=== PATIENT | female | born 1970 | race Caucasian/White ===

== ENCOUNTER 2016-12-20 23:00 | Emergency (ER) | payer OTHER ==
[~2016-12-20] VITALS: Ht 162.6 cm; Wt 81.7 kg
[~2016-12-20 23:00] MED LIST: IBUPROFEN 600600 M1 PO; NOHOMEMEDICATIONS; NORCO 5-325 TA1 EACH PO; PENICILLIN VK500 M1 PO; TRAMADOL 50 MG50 MG PO; ULTRAM 50MG TAB50 MG PO; ZOFRAN4 MG PO
[2016-12-21] MEDS ORDERED: PREDNISONE 20 M20 MG PO (00:51)
[2016-12-21 01:28] VITALS: BP 148/89
== END 2016-12-21 01:28 | disposition home or self-care (01) ==
LOC: ER 23:00
DX: J40 Bronchitis, not specified as acute or chronic (principal); J02.9 Acute pharyngitis, unspecified; F17.210 Nicotine dependence, cigarettes, uncomplicated

== ENCOUNTER 2017-02-22 01:45 | Inpatient (IN) | payer OTHER ==
[~2017-02-22] VITALS: Ht 162.6 cm; Wt 81.6 kg
--- NOTE | ~2017-02-22 | EKG ---
[address] [address] ELECTROCARDIOGRAM REPORT Name: JUDITH TRENTPablo Ritter Room #: 420-P [facility] IN .R.#: [id number] Admission: 02/22/17 Attend Phys: Calvin Carmona MD Discharge: Date of : 68 Report #: [id number] THIS REPORT FOR: //name// [facility] ED Test Date: 2017-02-22 Test Time: 02:22:59 Pat Name: WESLEY TRENT Department: Room: [facility] Gender: F Financial Counselor: AVE : 1970 Requested By: Wendi Link Order Number: [id number] MD: Hardeep Richard Measurements Intervals [place] Rate: 91 P: 29 [place]: 146 QRS: 12 QRSD: 85 T: 4 QT: 350 QTc: 431 Interpretive Statements Incomplete analysis due to missing data in precordial lead(s) Sinus rhythm Missing lead(s): V6 No previous ECG available for comparison Electronically Signed On 02-22-2017 13:34:10 CDT by Hardeep Richard [email or web address] <ELECTRONICALLY SIGNED> By: Hardeep Richard MD 02/22/17 1334 1 1 Hardeep Richard MD /ABIGAIL
[~2017-02-22 01:45] MED LIST changes: +PREDNISONE 20 M20 MG PO
[2017-02-22] MEDS ORDERED: WELLBUTRIN 100100 MG PO (01:47)
[2017-02-22 01:48] VITALS: BP 161/75
[2017-02-22] MEDS ORDERED: XANAX 0.5 MG0.5 MG PO (01:48)
[2017-02-22 02:30] LABS: URINE BILIRUBIN NEGATIVE (Negative); URINE BLOOD NEGATIVE (Negative); URINE COLOR YELLOW; URINE GLUCOSE-RANDOM* NEGATIVE (Negative); URINE KETONES NEGATIVE (Negative); URINE LEUKOCYTES-REFLEX NEGATIVE (Negative); URINE PROTEIN (DIPSTICK) NEGATIVE (Negative); URINE SPECIFIC GRAVITY 1.025 (1.003-1.035); URINE UROBILINOGEN 0.2 E.U./dl (0.2-1.0)
[2017-02-22 02:33] LABS: ABSOLUTE NEUTROPHILS 4.2 thou/uL (1.4-8.2); BASOPHILS 0.2 % (0.0-2.0); EOSINOPHILS 4.2 % (0.0-3.0); HEMATOCRIT 36.7 % (37.0-47.0); HEMOGLOBIN 12.4 gm/dL (12.0-15.0); LYMPHOCYTES 44.1 % (24.0-44.0); MCH 31.7 pg (26.0-34.0); MCHC 33.9 g/dL (28.0-37.0); MCV 93.7 fL (80.0-100.0); MONOCYTES 9.7 % (1.0-8.0); PLATELET COUNT 297 thou/uL (150-400); POLYS 41.8 % (36.0-66.0); RBC 3.92 mil/uL (4.20-5.00); RDW 15.3 % (10.5-14.5)
[2017-02-22 02:34] LABS: AMP/METHAMP Negative (Negative); BARBITURATES Negative (Negative); BENZODIAZEPINES Negative (Negative); COCAINE Negative (Negative); METHADONE Negative (Negative); PCP Negative (Negative); THC Negative (Negative)
[2017-02-22 02:41] LABS: ANION GAP 12 mmol/L (7-16); BUN 9 mg/dL (7-18); CALCIUM 9.4 mg/dL (8.5-10.1); CHLORIDE 105 mmol/L (98-107); CO2 23 mmol/L (21-32); CREATININE 0.9 mg/dL (0.6-1.3); GLUCOSE 97 mg/dL (70-99); MANUAL DIFF NO; POTASSIUM 4.3 mmol/L (3.5-5.1); SODIUM 140 mmol/L (136-145)
[2017-02-22 02:48] LABS: OPIATES POSITIVE (Negative)
[2017-02-22 02:48] LABS: ALBUMIN 3.6 g/dL (3.4-5.0); ALKALINE PHOSPHATASE 112 U/L (46-116); SGOT 14 U/L (15-37); SGPT 18 U/L (30-65); TOTAL BILIRUBIN 0.1 mg/dL (<0.1-1.0); TOTAL PROTEIN 7.1 g/dL (6.4-8.2); TROPONIN-I < 0.04 ng/mL (<0.04-0.07)
[2017-02-22 03:29] VITALS: BP 133/77
[2017-02-22 03:40] VITALS: BP 130/77
[2017-02-22 07:49] VITALS: BP 108/66
[2017-02-22] MEDS ORDERED: BENZTROPINE MES1 MG PO (11:43)
[2017-02-22 12:47] VITALS: BP 108/66
== END 2017-02-22 13:50 | disposition home or self-care (01) | DRG 57 ==
LOC: ER 01:45 → EROBS 03:17 → 4E 03:17
PROVIDERS: Emergency Medicine
DX: G25.79 Other drug induced movement disorders (principal); F19.239 Other psychoactive substance dependence with withdrawal, unspecified; I10 Essential (primary) hypertension; M19.90 Unspecified osteoarthritis, unspecified site; G25.71 Drug induced akathisia; F17.210 Nicotine dependence, cigarettes, uncomplicated; F32.9 Major depressive disorder, single episode, unspecified; M41.9 Scoliosis, unspecified
CPT/HCPCS: 10183

== ENCOUNTER 2017-11-21 15:53 | Emergency (ER) | payer OTHER ==
[~2017-11-21] VITALS: Ht 162.6 cm; Wt 77.1 kg
[~2017-11-21 15:53] MED LIST changes: +BENZTROPINE MES1 MG PO; +WELLBUTRIN 100100 MG PO; +XANAX 0.5 MG0.5 MG PO
[2017-11-21 15:54] VITALS: BP 150/96
[2017-11-21] MEDS ORDERED: ULTRAM 50MG TAB50 MG PO (16:19)
[2017-11-21] MEDS ORDERED: NORFLEX100 MG PO (16:19)
[2017-11-21] MEDS ORDERED: PREDNISONE 10 M10 MG PO (16:19)
== END 2017-11-21 16:58 | disposition home or self-care (01) ==
LOC: ER 15:53
DX: S39.012A Strain of muscle, fascia and tendon of lower back, initial encounter (principal); M41.9 Scoliosis, unspecified; M19.91 Primary osteoarthritis, unspecified site; F17.210 Nicotine dependence, cigarettes, uncomplicated; W10.8XXA Fall (on) (from) other stairs and steps, initial encounter; Y93.89 Activity, other specified; Y92.89 Other specified places as the place of occurrence of the external cause; Y99.8 Other external cause status

== ENCOUNTER 2017-12-12 22:14 | Emergency (ER) | payer OTHER ==
[~2017-12-12] VITALS: Ht 160 cm; Wt 75.8 kg
[~2017-12-12 22:14] MED LIST changes: +NORFLEX100 MG PO; +PREDNISONE 10 M10 MG PO
[2017-12-12 23:15] VITALS: BP 127/85
[2017-12-13] MEDS ORDERED: TRAMADOL 50 MG50 MG PO (00:04)
== END 2017-12-13 00:18 | disposition home or self-care (01) ==
LOC: ER 22:14
DX: J06.9 Acute upper respiratory infection, unspecified (principal); F17.210 Nicotine dependence, cigarettes, uncomplicated; M41.9 Scoliosis, unspecified